=== PATIENT | male | born 1980 | race Caucasian/White ===

== ENCOUNTER 2023-06-21 12:42 | Emergency (ER) | payer OTHER ==
[2023-06-21 13:03] VITALS: BP 150/90; O2SAT 98
[2023-06-21] MEDS ORDERED: PROPARACAINE 0.5% OPHTH DROPS 15 ML LEFTEYE STA (13:14)
[2023-06-21] MEDS ORDERED: BACITRACIN ZINC OINT 1 PACKET TOP STA (13:14)
--- NOTE | 2023-06-21 13:17 | ED Physician Documentation ---
PD HPI HEENT - Stated complaint Stated Complaint: FACE/EYE INJ LAC - Chief complaint Chief Complaint: Heent - History obtained from History obtained from: Patient - Additional information Additional information: The patient comes to the emergency department chief complaint of left facial injury after being hit in the face with a board. 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 The patient states that he wants to mainly make sure his eye is okay. He noticed some small cuts on his eyelid, though these seem to be fairly superficial. He is also noticed some swelling and a "blood blister" of his medial periorbital area on the left. No other injuries or complaints. He states his vision is slightly blurry but seems otherwise okay. The injury happened about 45 minutes ago. PD PAST MEDICAL HISTORY - Past Medical History Past Medical History: No Cardiovascular: None Respiratory: None Neuro: None Endocrine/Autoimmune: None GI: None : None HEENT: None Psych: None Musculoskeletal: None Derm: None - Past Surgical History Past Surgical History: No - Present Medications Home Medications: Ambulatory Orders Medication Instructions Recorded Confirmed Gentamicin 0.3% Ophth Drops 1 drops OPTH BID #5 ml 06/21/23 [Garamycin] - Allergies Allergies/Adverse Reactions: Allergies Allergy/AdvReac Type Severity Reaction Status Date / Time No Known Drug Allergies Allergy Verified 06/21/23 12:50 - Social History Does the pt smoke?: No Smoking Status: Never smoker Does the pt drink ETOH?: No Does the pt have substance abuse?: No - Immunizations Immunizations are current?: Yes PD ED PE NORMAL - Vitals Vital signs reviewed: Yes - General General: Alert and oriented X 3, No acute distress - HEENT HEENT: PERRL, EOMI, Moist mucous membranes, Other (Approximately 12 mm diameter hematoma to left medial eyelid/nasal bridge without tension. 2 small superficial skin tears involving left upper eyelid. Bleeding controlled, no foreign bodies. Skin layer involvement only. No periorbital edema otherwise. Mild conjunctival injection and tearing. ) - Neck Neck: Supple, no meningeal sign - Respiratory Respiratory: No respiratory distress - Derm Derm: Normal color, Warm and dry, No rash - Extremities Extremities: No deformity - Neuro Neuro: Alert and oriented X 3 - Psych Psych: Normal mood, Normal affect - Free text exam Free text exam: Fluorescein exam reveals tiny corneal abrasions between the 1:00 and 5:00 positions on the left eye without foreign material. No streaming. Visual acuity is 20/20 in both eyes separately and together. Results - Vitals Vitals: Vital Signs - 24 hr 06/21/23 12:50 Temperature 36.5 C Heart Rate 100 Respiratory 16 Rate Blood Pressure 150/90 H O2 Saturation 98 Oxygen O2 Source Room air Procedures - Laceration (location) Left eyelid Length in cm: 0.8 Wound type: Linear, Superficial Neurovascular status: Sensory intact, Motor intact, Vascular intact Wound preparation: Wound explored, To the base, Other (Cleaned with normal saline) Skin layer closure: Dermabond, Other Other: Patient tolerated well, No complications, Neurovascular intact, Other (Bacitracin applied) PD Medical Decision Making - ED course Complexity details: reviewed results, re-evaluated patient, considered differential, d/w patient ED course: The patient's visual acuity was 20/20 in both eyes and the patient was found to have some small corneal abrasions but no evidence of a more serious eye injury. The patient did have some oozing of blood from his superficial skin lacerations on the eyelid and although the lacerations were not suturable, I did go ahead and Dermabond them for the patient. He was advised of the expected timeline for recovery and the need for topical antibiotics for his H[place]duc[place]. I have sent these to the pharmacy of patient's choice. We have discussed the usual indications for follow-up and return. Departure - Departure Disposition: 01 Home, Self Care Clinical Impression: Superficial laceration Corneal abrasion Qualifiers: Encounter type: initial encounter Laterality: left Qualified Code(s): S05.02XA - Injury of conjunctiva and corneal abrasion without foreign body, left eye, initial encounter Condition: Stable Instructions: ED Eye Injury Corneal Abrasion Prescriptions: Gentamicin 0.3% Ophth Drops [Garamycin] 1 drops OPTH BID #5 ml Comments: You have some superficial scratches on the surface of your eye, which will heal in the next few days. You also have some superficial scratches and skin tears on your left upper eyelid. The largest of the 2 these, though not needing stitches, have been reinforced with skin glue to help with some of the oozing of blood. This will come off on its own in the next 3 to 4 days, by which time healing should be well underway. You have a small hematoma, or little blood collection along the inner aspect of your eyelid and the side of the bridge of your nose. This will ultimately go away on its own, though will probably take a few weeks. Some of the blood may track down through your tissues, due to gravity, and so you may notice some bruising spreading along your cheek and lower face. This is not unusual and ultimately, it will all be reabsorbed by your body. Because of the scratches on the surface of your eye, we do recommend antibiotics topically for 5 to 7 days. We were unable to send your prescription electronically to [facility], so a paper prescription has been provided for these. Please get the prescription filled today and begin antibiotics when you get them. Otherwise, you may use ibuprofen and Tylenol as needed. If it helps, you may put a patch over your left eye to help with some the irritation. Your vision is normal today and there is no evidence of a serious injury to your eye. Forms: PCP List
== END 2023-06-21 14:00 | disposition home or self-care (01) ==
LOC: ED 12:42
DX: S05.02XA Injury of conjunctiva and corneal abrasion without foreign body, left eye, initial encounter (principal); W20.8XXA Other cause of strike by thrown, projected or falling object, initial encounter; Y93.H3 Activity, building and construction; Y99.0 Civilian activity done for income or pay
CPT/HCPCS: 12011; 99282; 99283; A9270; J3490